=== PATIENT | female | born 2000 | race Two or more races ===

== ENCOUNTER 2025-01-10 09:53 | Emergency (ER) | payer MEDICAID, SELFPAY ==
[2025-01-10 10:02] VITALS: BP 104/79; PULSE 97; RESP 16; TEMP 36.9; O2SAT 97
--- NOTE | 2025-01-10 10:17 | EDNOTE_ITS ---
Upper Extremity Injury RME/HPI General Chief Complaint: Hand/Wrist Problems Stated Complaint: CUT R) 5TH FINGER, POSSIBLE STITCHES Time Seen by Provider: 01/10/25 09:57 Arrival date/time: 01/10/25 09:53 24-year-old female with no significant medical problems presents to the emergency department today for complaint of laceration right hand fifth digit patient reports he was opening a can today of corn and accidentally cut her hand Limitations: no limitations Related Data Previous Rx's ?Medication ?Instructions ?Recorded Acetaminophen With Codeine 1 tab PO V1CKTRY ##14 12/20 (Tylenol W-Codeine #3 Tablet) Allergies Allergy/AdvReac Type Severity Reaction Status Date / Time No Known Allergies Allergy Verified 01/10/25 09:55 Review of Systems Review of Systems Systems Reviewed: All systems reviewed, normal except as documented Constitutional Constitutional: Reports system reviewed and no additional complaints, except as documented, Denies fever(s) and Denies headache(s) Eyes Eyes: Reports system reviewed and no additional complaints, except as documented and Denies blurry vision ENT Ears, Nose, Mouth, and Throat: Reports system reviewed and no additional complaints, except as documented, Denies headache(s), Denies nasal congestion and Denies nasal discharge Cardiovascular Cardiovascular: Reports system reviewed and no additional complaints, except as documented, Denies chest pain and Denies dyspnea Respiratory Respiratory: Reports system reviewed and no additional complaints, except as documented, Denies chest congestion, Denies cough and Denies dyspnea Gastrointestinal Gastrointestinal: Reports system reviewed and no additional complaints, except as documented and Denies abdominal pain Integumentary/Breasts Skin/Breast: Reports system reviewed and no additional complaints, except as documented, Denies rash and Reports wounds (Laceration right hand for digit) Neurologic Neurologic: Reports system reviewed and no additional complaints, except as documented, Reports as per HPI and Denies headache(s) Past Medical History Social History SMOKING STATUS: Never smoker ED Exam General Limitations: Present no limitations General appearance: Present alert and in no apparent distress Head Head exam: Present atraumatic Eye Eye exam: Present normal appearance, PERRL and EOMI ENT ENT exam: Present normal exam, normal oropharynx and mucous membranes moist Neck Neck exam: Present normal inspection, full ROM and trachea midline Chest Chest inspection: Present normal inspection and symmetric chest wall rise Respiratory Respiratory exam: Present normal lung sounds bilaterally Cardiovascular Cardiovascular exam: Present regular rate, normal rhythm and normal heart sounds Abdominal Exam Abdominal exam: Present soft and normal bowel sounds Extremities Exam Extremities exam: Present full ROM, tenderness, normal capillary refill and other (Laceration right hand fifth digit no evidence of tendon ligamentous injury); Absent joint swelling Back Exam Back exam: Present normal inspection and full ROM Neurological Exam Neurological exam: Present alert, oriented X3, CN II-XII intact, normal gait and reflexes normal; Absent motor sensory deficit Psychiatric Psychiatric exam: Present normal affect and normal mood Skin Skin exam: Present warm, dry and other (Laceration right hand) Course Quality Measures none Orders Category Date Time Status Set Up Suture Tray STAT Care 01/10/25 10:17 Active Wound Care NOW Care 01/10/25 10:17 Active Lidocaine 1% 20 ml [Xylocaine 1% 20 ML] Med 01/10/25 10:17 Discontinued 20 ml INFL X1 ONE TET,DIP/PERT AC (Adult)-Tdap [Boostrix Adult (Tdap) Med 01/10/25 10:17 Discontinued Vacc] 0.5 ml IMI .ONCE ONE Vital Signs Vital signs: Vital Signs Temperature 98.4 F 01/10/25 10:02 Pulse Rate 97 01/10/25 10:02 Respiratory Rate 16 01/10/25 10:02 Blood Pressure 104/79 01/10/25 10:02 Pulse Oximetry (%) 97 01/10/25 10:02 Oxygen Delivery Method Room Air 01/10/25 10:02 O2 saturation 97% room air within normal limits Procedures -ED Laceration Laceration 1: Site: hand Side (If applicable): right Size (cm): 4 Description: linear Depth: simple, single layer Local Anesthetic: lidocaine 1% Amount of anesthesia used (mL): 8 Pre-repair: wound explored and irrigated extensively Skin layer closed with: nylon Size (cm): 5-0 Number of sutures: 6 Technique: simple, interrupted Extremity Injury MDM Narrative MDM Narrative:: 24-year-old female with no significant medical problems presents to the emergency department today for complaint of laceration right hand fifth digit patient reports he was opening a can today of corn and accidentally cut her hand On exam patient is laceration right hand fifth digit palmar aspect approximate 4 cm no evidence of tendon ligamentous injury Wound irrigated copiously laceration pair with sick sutures wound is well- approximated Patient discharged home in no distress to follow-up with primary care doctor in the next 24 to 48 hours and for any worsening symptoms to return to the ER immediately Patient data External records reviewed:: [facility] previous records Clinical information provided by:: patient Social determinants that could affect healthcare access:: none Patient has the following chronic illnesses:: None How is presenting disease/condition affected by chronic disease/condition?: no chronic disease Evaluation data The following diagnostics were reviewed and interpreted by me:: other (specify) (N/A) Lab and/or radiology exams considered but not ordered:: Consider not ordered Interpretation Summary: N/A Medications / Prescriptions Medications or Prescriptions considered but not ordered:: Given Medication administrations:: Medication Administration History Discontinued Medications Diphtheria/Tetanus/Acell Pertussis (Diphth,Pertuss(Acell),Tet Vac 0.5 Ml Syr- Adult) 0.5 ml IMi .ONCE ONE Stop: 01/10/25 10:18 Last Admin: 01/10/25 10:38 Dose: 0.5 ml Documented By: IVONNE Lidocaine HCl (Lidocaine Hcl 1% 20 Ml Vial) 20 ml INFL X1 ONE Stop: 01/10/25 10:18 Last Admin: 01/10/25 10:40 Dose: 20 ml Documented By: CS Given Consultations Consultation(s) initiated? (list below): No Diagnosis Upper Extremity Injury Differential Diagnosis: other Most likely diagnosis given after review of the tests above:: Laceration Admission Indicated Admission indicated?: not indicated Admission Request Was there a request for admission?: No Disposition Plan Disposition Plan: Discharge Discharge Attestation Discharge Attestation: The patient and all family members were given an opportunity to ask questions and understood the discharge instructions. Discharge instructions specifically effects, indications for sooner follow up or return to the emergency department, and the expected course of current diagnosis. Patient condition: Stable Discharge Plan Plan Patient Disposition: HOME (Self Care) Discharge Disposition comment: Stable Prescriptions/Referrals Prescriptions/Med Rec: No Action Acetaminophen With Codeine (Tylenol W-Codeine #3 Tablet) 1 TAB tablet 1 tab PO [id number] Qty: 14 0RF Problem List Clinical Impression: Laceration of hand, right Patient/Caregiver Discharge Instructions Education Materials: ED Laceration Small or ... 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 bailey
[2025-01-10] MEDS: DIPHTH,PERTUSS(ACELL),TET VAC 0.5 ML SYR- ADULT IMi (10:38)
[2025-01-10] MEDS: LIDOCAINE HCL 1% 20 ML VIAL INFL (10:40)
== END 2025-01-10 10:50 | disposition home or self-care (01) ==
LOC: SERX 10:38
PROVIDERS: Emergency Provider Emergency Medicine
DX: S61.216A Laceration without foreign body of right little finger without damage to nail, initial encounter (principal); W26.8XXA Contact with other sharp object(s), not elsewhere classified, initial encounter; Z23 Encounter for immunization
CPT/HCPCS: 12002; 90471; 90715; 99283; J3490

== ENCOUNTER 2025-06-05 23:39 | Emergency (ER) | payer MEDICAID, SELFPAY ==
[2025-06-05 23:39] VITALS: BMI 40.3
[2025-06-05 23:58] VITALS: BP 108/71; PULSE 68; RESP 16; TEMP 36.6; O2SAT 99
--- NOTE | 2025-06-06 00:09 | PD.EDABDPN ---
ED Abdominal Pain RME/HPI General Chief Complaint: Abdominal Pain Stated complaint: UPPER ABDOMINAL PAIN Time seen by provider: 06/06/25 00:04 Arrival date/time: 06/05/25 23:39 25F with no significant PMH presents to ED with 30 min of epigastric pain. and N/V. Possible non-bloody diarrhea. Patient denies dysuria. Limitations: no limitations Related Data Previous Rx's ?Medication ?Instructions ?Recorded Acetaminophen With Codeine 1 tab PO [id number] ##14 12/20/12 (Tylenol W-Codeine #3 Tablet) dicyclomine 10 mg capsule 10 mg PO BID PRN abdominal pain 06/06/25 #10 caps ondansetron 4 mg disintegrating 4 mg PO Q8H PRN nausea and 06/06/25 tablet vomiting #14 tabs Allergies Allergy/AdvReac Type Severity Reaction Status Date / Time No Known Allergies Allergy Verified 01/10/25 09:55 Review of Systems Review of Systems Systems Reviewed: All systems reviewed, normal except as documented Gastrointestinal Gastrointestinal: Reports as per HPI, Reports abdominal pain, Reports diarrhea and Reports nausea Past Medical History Social History SMOKING STATUS: Never smoker ED Exam General Limitations: Present no limitations General appearance: Present alert and in no apparent distress Head Head exam: Present atraumatic Neck Neck exam: Present normal inspection, full ROM and trachea midline Chest Chest inspection: Present normal inspection and symmetric chest wall rise Abdominal Exam Abdominal exam: Present soft and normal bowel sounds Neurological Exam Neurological exam: Present alert and oriented X3 Psychiatric Psychiatric exam: Present normal affect and normal mood Skin Skin exam: Present warm, dry, intact and normal color Course Quality Measures none Orders Category Date Time Status Dicyclomine [Bentyl] Med 06/06/25 01:29 Discontinued 10 mg PO X1 ONE Famotidine [Pepcid] Med 06/06/25 00:04 Discontinued 40 mg PO X1 ONE Lidocaine 2% Viscous [Xylocaine 2% Viscous] Med 06/06/25 00:04 Discontinued 15 ml PO X1 ONE Ondansetron Inj [Zofran Inj] Med 06/06/25 01:29 Discontinued 4 mg IM X1 ONE Ondansetron Inj [Zofran Inj] Med 06/06/25 01:30 Discontinued 4 mg IM X1 ONE Ondansetron Odt [Zofran Odt] Med 06/06/25 00:04 Discontinued 4 mg PO X1 ONE Vital Signs Vital signs: Vital Signs Temperature 98 F 06/05/25 23:58 Pulse Rate 68 06/05/25 23:58 Respiratory Rate 16 06/05/25 23:58 Blood Pressure 108/71 06/05/25 23:58 Pulse Oximetry (%) 99 06/05/25 23:58 Oxygen Delivery Method Room Air 06/05/25 23:58 O2 at 99% on RA and WNLs Abdominal Pain MDM MDM Narrative MDM Narrative:: 25F with no significant PMH presents to ED with 30 min of epigastric pain. and N/V. Possible non-bloody diarrhea. Patient denies dysuria. Physical exam reveals no ab tenderness. Patient is afebrile, alert, but appears uncomfortable. Meds improved symptoms. Patient data External records reviewed:: [facility] previous records Clinical information provided by:: patient Social determinants that could affect healthcare access:: none Patient has the following chronic illnesses:: none How is presenting disease/condition affected by chronic disease/condition?: no chronic disease Evaluation data The following diagnostics were reviewed and interpreted by me:: other (specify) (none) Lab and/or radiology exams considered but not ordered:: not ordered Interpretation Summary: n/a Medications / Prescriptions Medications or Prescriptions considered but not ordered:: ordered Medication administrations:: Medication Administration History Discontinued Medications Dicyclomine HCl (Dicyclomine 10 Mg Capsule) 10 mg PO X1 ONE Stop: 06/06/25 01:30 Last Admin: 06/06/25 01:55 Dose: 10 mg Documented By: RIOS Famotidine (Famotidine 20 Mg Tablet) 40 mg PO X1 ONE Stop: 06/06/25 00:05 Last Admin: 06/06/25 00:14 Dose: 40 mg Documented By: MILA Lidocaine HCl (Lidocaine Viscous 2% 15 Ml Udc) 15 ml PO X1 ONE Stop: 06/06/25 00:05 Last Admin: 06/06/25 00:15 Dose: 15 ml Documented By: MILA Ondansetron HCl (Ondansetron Odt 4 Mg Tabrap) 4 mg PO X1 ONE; Protocol Stop: 06/06/25 00:05 Last Admin: 06/06/25 00:14 Dose: 4 mg Documented By: MILA Ondansetron HCl (Ondansetron Inj 2 Mg/Ml Inj 2 Ml) 4 mg IM X1 ONE; Protocol Stop: 06/06/25 01:30 Last Admin: 06/06/25 02:46 Dose: Not Given Documented By: RIOS Non-Admin Reason: Discontinued Ondansetron HCl (Ondansetron Inj 2 Mg/Ml Inj 2 Ml) 4 mg IM X1 ONE; Protocol Stop: 06/06/25 01:31 Last Admin: 06/06/25 01:55 Dose: 4 mg Documented By: RIOS Comments: MEDICATION GIVEN IM NOT IV above Consultations Consultation(s) initiated? (list below): No Diagnosis Differential diagnosis abdominal pain: abdominal pain, acute appendicitis, calculus of kidney, constipation, diverticulitis, gastroenteritis, pancreatitis, small bowel obstruction and other (gastritis) Most likely diagnosis given after review of the tests above:: gastroenteritis Admission Indicated Admission indicated?: not indicated Admission Request Was there a request for admission?: No Disposition Plan Disposition Plan: Discharge Discharge Attestation Discharge Attestation: The patient and all family members were given an opportunity to ask questions and understood the discharge instructions. Discharge instructions specifically effects, indications for sooner follow up or return to the emergency department, and the expected course of current diagnosis. Patient condition: Stable Discharge Plan Plan Patient Disposition: HOME (Self Care) Discharge Disposition comment: Stable Prescriptions/Referrals Prescriptions/Med Rec: New ondansetron 4 mg tablet,disintegrating 4 mg PO Q8H PRN (Reason: nausea and vomiting) Qty: 14 0RF dicyclomine 10 mg capsule 10 mg PO BID PRN (Reason: abdominal pain) Qty: 10 0RF No Action Acetaminophen With Codeine (Tylenol W-Codeine #3 Tablet) 1 TAB tablet 1 tab PO [id number] Qty: 14 0RF Referrals: No Primary/Family,Physician [Primary Care Provider] - In 1 week Problem List Clinical Impression: Gastroenteritis Patient/Caregiver Discharge Instructions Education Materials: ED Diarrhea, Viral (Adult) Additional Instructions: Please follow-up with PCP within 24-48 hours and return immediately if symptoms worsen. Keep hydrated. Advance diet as tolerated. Print Language: Lao Stand Alone Forms: Patient Portal Info Letter PA/COLLEGE OR UNIVERSITY BUSINESS MANAGER Supervising Physician GREG/KELLEY Supervising Physician: Dr. Plummer
[2025-06-06] MEDS: ONDANSETRON ODT 4 MG TABRAP PO (00:14)
[2025-06-06] MEDS: FAMOTIDINE 20 MG TABLET 40 MG PO (00:14)
[2025-06-06] MEDS: LIDOCAINE VISCOUS 2% 15 ML UDC PO (00:15)
[2025-06-06] MEDS: DICYCLOMINE 10 MG CAPSULE PO (01:55)
[2025-06-06] MEDS: ONDANSETRON INJ 2 MG/ML INJ 2 ML 4 MG IM (01:55)
--- NOTE | 2025-06-06 02:49 | PC.NURSE ---
WE HAD DOWN TIME FROM [id number].
[2025-06-06 03:10] VITALS: BP 121/76; PULSE 66; RESP 14; TEMP 37; O2SAT 99
== END 2025-06-06 03:11 | disposition home or self-care (01) ==
PROVIDERS: Emergency Provider Emergency Medicine
DX: K52.9 Noninfective gastroenteritis and colitis, unspecified (principal)
CPT/HCPCS: 96374; 99283; J2405; J3490; Q0162; A9270